=== PATIENT | female | born 1950 | race Caucasian/White ===

== ENCOUNTER 2017-12-27 06:18 | Day surgery (SDC) | payer OTHER, MEDICARE ==
[~2017-12-27] VITALS: Ht 160 cm; Wt 77.1 kg
[~2017-12-27 06:18] MED LIST: ASPIR 8181 M1 PO; EFFEXOR75 MG PO; HYDROCHLOROTH12.5 M3 PO; JANUVIA100 MG PO; METFORMIN HCL500 MG PO; OMEPRAZOLE20 MG PO; RESTASIS 01 DROP/0.4 BOTH EYES; TELMISARTAN40 MG PO; TRULICITY0.75 MG/0. SC
[2017-12-27 07:14] VITALS: BP 148/66
[2017-12-27 09:52] VITALS: BP 142/65
[2017-12-27 10:45] VITALS: BP 113/57
== END 2017-12-27 10:50 | disposition home or self-care (01) ==
LOC: SDC 06:18
PROVIDERS: Obstetrics & Gynecology
PROC: 0UBM0ZZ Excision of Vulva, Open Approach (ICD-10-PCS; principal; 2017-12-27)
DX: L72.0 Epidermal cyst (principal); I10 Essential (primary) hypertension; E11.9 Type 2 diabetes mellitus without complications; Z87.891 Personal history of nicotine dependence; Z79.84 Long term (current) use of oral hypoglycemic drugs; Z79.82 Long term (current) use of aspirin; K21.9 Gastro-esophageal reflux disease without esophagitis
CPT/HCPCS: 82948; 88304; J1100; J1885; J2405; J3010; S0020